=== PATIENT | female | born 2000 | race Caucasian/White ===

== ENCOUNTER 2021-08-15 16:02 | Observation (INO) ==
[2021-08-15 16:42] LABS: Basophils % 0.4 %; Eosinophils # 0.2 K/mcL (0.0-0.6); Eosinophils % 2.1 %; Hemoglobin 13.7 g/dL (11.5-15.4); Immature Granulocytes % 0.1 % (0-4); Lymphocytes # 1.8 K/mcL (0.6-4.6); Lymphocytes % 25.5 %; Mean Corpuscular HGB Conc 33.4 g/dL (31.6-35.5); Mean Corpuscular Hemoglobin 31.6 pg (28.0-33.3); Mean Corpuscular Volume 94.7 fL (83.0-100.0); Mean Platelet Volume 11.3 fL (9.4-12.4); Monocytes # 0.6 K/mcL (0.0-1.3); Monocytes % 8.6 %; Neutrophils # 4.6 K/mcL (1.6-8.9); Platelet Count 188 K/mcL (140-400); Red Blood Count 4.33 M/mcL (3.82-4.97); Red Cell Distribution Width 12.1 % (11.5-14.5); Segmented Neutrophils % 63.3 %; White Blood Count 7.2 K/mcL (4.3-11.1)
[2021-08-15 16:43] LABS: Bilirubin,Urine Negative (Negative); Blood,Urine Negative (Negative); Clarity,Urine Clear (Clear); Color,Urine Colorless (Yellow); Glucose,Urine (UA) Normal (Normal); Ketones,Urine Negative (Negative); Leukocyte Esterase,Urine Negative (Negative); Nitrite,Urine Negative (Negative); Protein,Urine Negative (Neg-Trace); Specific Gravity,Urine 1.012 (1.010-1.025); Urobilinogen,Urine Normal (Normal)
[2021-08-15 17:03] LABS: Amphetamine Screen,Urine Negative ng/mL (Cutoff=1000); Barbiturate Screen,Urine Negative ng/mL (Cutoff=200); Benzodiazepines Screen,Urine Negative ng/mL (Cutoff=200); Cannabinoid Screen,Urine Positive ng/mL (Cutoff = 50); Cocaine Screen,Urine Negative ng/mL (Cutoff= 300); Opiate Screen,Urine Negative ng/mL (Cutoff=300); Phencyclidine Screen,Urine Negative ng/mL (Cutoff=25)
[2021-08-15 17:21] LABS: Acetaminophen < 10 mcg/mL (10-20); Alanine Aminotransferase 12 Units/L (7-52); Albumin 4.5 g/dL (3.5-5.7); Albumin/Globulin Ratio 1.7 (1.1-2.2); Alkaline Phosphatase 57 Units/L (34-104); Aspartate Amino Transferase 13 Units/L (13-39); BUN/Creatinine Ratio 17 (6-26); Bilirubin,Direct 0.1 mg/dL (0.0-0.2); Bilirubin,Indirect 0.3 mg/dL (0.0-1.0); Bilirubin,Total 0.4 mg/dL (0.3-1.0); Blood Urea Nitrogen 17 mg/dL (6-20); Calcium 9.6 mg/dL (8.6-10.3); Carbon Dioxide 25 mEq/L (23-29); Chloride 105 mEq/L (98-107); Ethanol < 10 mg/dL (Less than 10); Globulin 2.7 g/dL (2.4-3.5); Glucose 99 mg/dL (70-105); Osmolality,Calculated 288 (280-300); Potassium 3.5 mEq/L (3.5-5.1); Salicylate < 2.5 mg/dL (15.0-30.0); Sodium 138 mEq/L (136-145); Thyroid Stimulating Hormone 1.437 mcIU/mL (0.340-5.600); Total Protein 7.2 g/dL (6.4-8.9); eGFR For African Americans > 60 (> 60); eGFR For Non-African Americans > 60 (> 60)
[2021-08-15 17:30] LABS: Influenza A PCR Negative (Negative); Influenza B PCR Negative (Negative); Resp. Syncytial Virus PCR Negative (Negative)
[2021-08-15 17:35] LABS: SARS-CoV-2 by PCR (In House) Negative (Negative)
[2021-08-15] MEDS ORDERED: traZODone 50 MG TABLET PO PRN (19:03)
[2021-08-15] MEDS ORDERED: *HR* LORazepam 1 MG TABLET PO PRN (19:03)
[2021-08-15] MEDS ORDERED: hydrOXYzine pamoate 25 MG CAPSULE PO PRN (19:03)
[2021-08-15] MEDS ORDERED: Haloperidol Lactate 5 MG/ML VIAL IM PRN (19:03)
[2021-08-15] MEDS ORDERED: Ibuprofen 400 MG TABLET PO PRN (19:03)
[2021-08-15] MEDS ORDERED: haloperidoL 5 MG TABLET PO PRN (19:03)
[2021-08-15] MEDS ORDERED: *HR* LORazepam 2 MG/ML VIAL IM PRN (19:03)
[2021-08-15] MEDS ORDERED: Acetaminophen 325 MG TABLET PO PRN (19:03)
[2021-08-15] MEDS ORDERED: *HR* LORazepam 0.5 MG TABLET PO ONE (19:12)
[2021-08-16 09:26] VITALS: BP 112/74; PULSE 76; TEMP 98.6; O2SAT 98
[2021-08-16] MEDS ORDERED: Mag Hydrox/Al Hydrox/Simeth 30 ML UDC PO PRN (11:48)
[2021-08-16] MEDS ORDERED: MOM Conc 10 ML UD.LIQ PO PRN (11:48)
== END 2021-08-16 15:00 | disposition home or self-care (01) ==
LOC: EMEROOARM 16:02 → INTOOBSV 19:41 → 1ANU 19:41
PROVIDERS: ADMIT Psychiatry & Neurology Psychiatry; ATTEND Psychiatry & Neurology Psychiatry